=== PATIENT | male | born 1965 | race Caucasian/White ===

== ENCOUNTER → 2017-02-24 11:55 | Outpatient (CLI) | payer OTHER, SELFPAY ==
[2017-02-24 12:20] LABS: Microscopic, Urine URINE MICROSCOPIC (MICROSCOPIC)
--- NOTE | 2017-02-24 12:27 | XR_ITS ---
XR chest 2V HISTORY: Hypertension ITS.REASON: HTN ORDERING PHYSICIAN: Yonas Beck PATIENT AGE: 51 years COMPARISON: None available FINDINGS: The cardiomediastinal silhouette and pulmonary vascularity are within normal limits. The lungs are clear without infiltrates, suspicious nodules, or pleural effusions. No acute bony abnormalities. IMPRESSION: Negative chest, no acute finding
[2017-02-24 12:48] LABS: Activated Partial Thrombo Time 25.9 seconds (23.6-34.0); Prothrombin Time 10.8 seconds (9.4-11.8)
[2017-02-24 12:50] LABS: Basophils # 0.1 K/mm3 (0-0.2); Basophils % 0.8 % (0.1-2.0); Eosinophils # 0.2 K/mm3 (0.0-0.4); Eosinophils % 1.6 % (0.1-12.0); Hematocrit 49.2 % (42.0-52.0); Hemoglobin 16.1 g/dL (14.1-18.0); Lymphocytes # 2.9 K/mm3 (0.7-4.5); Lymphocytes % 27.8 K/mm3 (10-50); Mean Corpuscular HGB Conc 32.7 g/dL (31.8-35.4); Mean Corpuscular Hemoglobin 29.2 pg (27.0-31.2); Mean Corpuscular Volume 89.3 fl (80-94); Mean Platelet Volume 7.7 fl (7.4-10.4); Monocytes # 0.5 K/mm3 (0.1-1.0); Monocytes % 4.9 % (1.7-9.3); Neutrophils # 6.8 K/mm3 (1.8-7.8); Neutrophils % 64.8 % (37.0-80.0); Platelet Count 209 K/mm3 (142-424); White Blood Count 10.4 K/mm3 (4.8-10.8)
[2017-02-24 12:56] LABS: Appearance,Urine CLEAR (Clear); Bilirubin,Urine Negative (Negative); Blood, Urine Negative (Negative); Color,Urine YELLOW (Yellow); Glucose,Urine (UA) Negative (Negative); Ketones,Urine Negative (Negative); Leukocyte Esterase,Urine Negative (Negative); Nitrate,Urine Negative (Negative); PH,Urine 5.5 (5.0-8.5); Protein,Urine Negative (Negative); Specific Gravity, Urine >= 1.030 (1.005-1.030); Urobilinogen,Urine 0.2 EU/dl (0.2)
[2017-02-24 13:47] LABS: Anion Gap 14.4 mEq/L (5-15); Bacteria,Urine Trace /lpf; Blood Urea Nitrogen 27 mg/dL (7-18); Carbon Dioxide 26 mmol/L (21.0-32.0); Chloride 103 mmol/L (98-107); Estimated Glomerular Filt Rate 43 ml/min (>60); GFR (African American) 51 ML/MIN (>60); Glucose 91 mg/dL (74-106); Potassium 4.4 mmoL/L (3.5-5.1); Sodium 139 mmol/L (136-145); Squamous Epithelial Cell,Urine Occasional #/hpf (0-5)
[2017-02-24 14:00] LABS: Hemoglobin A1C 5.5 % (0.0-7.0)
== END ==
PROVIDERS: PCP Family Medicine; Visit Provider Family Medicine
DX: I10 Essential (primary) hypertension (principal); E78.00 Pure hypercholesterolemia, unspecified; R73.01 Impaired fasting glucose
CPT/HCPCS: 36415; 71046; 80048; 81001; 83036; 85025; 85610; 85730

== ENCOUNTER → 2019-12-06 07:40 | Outpatient (CLI) | payer OTHER, SELFPAY ==
[2019-12-06 09:36] LABS: Adenovirus,PCR Not Detected (NotDetected); Coronavirus 229E Not Detected (NotDetected); Coronavirus NL63 Not Detected (NotDetected); Coronavirus OC43 Not Detected (NotDetected); Coronovirus HKU1,PCR Not Detected (NotDetected); Human Metapneumovirus Not Detected (NotDetected); Influenza A, PCR Not Detected (NotDetected); Influenza AH1, 2009 Not Detected (NotDetected); Influenza AH1, PCR Not Detected (NotDetected); Influenza AH3,PCR Not Detected (NotDetected); Influenza B, PCR Not Detected (NotDetected); Parainfluenza 1, PCR Not Detected (NotDetected); Parainfluenza 2, PCR Not Detected (NotDetected); Rhinovirus/Enterovirus Not Detected (NotDetected)
[2019-12-06 09:37] LABS: Bordetella Pertussis Not Detected (NotDetected); Chlamydophila Pneumoniae, PCR Not Detected (NotDetected); Coronavirus 19, PCR Not Detected (NotDetected); Mycoplasma Pneumoniae, PCR Not Detected (NotDetected); Parainfluenza 3, PCR Not Detected (NotDetected); Parainfluenza 4, PCR Not Detected (NotDetected); Respiratory Syncytial Virus Not Detected (NotDetected)
== END ==
PROVIDERS: PCP Family Medicine; Visit Provider Internal Medicine Adolescent Medicine
DX: Z03.818 Encounter for observation for suspected exposure to other biological agents ruled out (principal)
CPT/HCPCS: 87581; 87633; 87798; U0003

== ENCOUNTER 2019-12-15 12:55 | Emergency (ER) | payer OTHER, SELFPAY ==
[2019-12-15 14:25] VITALS: BP 142/110; PULSE 71; RESP 16; TEMP 36.8; O2SAT 96; BMI 35.3
--- NOTE | 2019-12-15 14:35 | HMH.EDUTC ---
[facility] Disposition Clinical Impression: Sinusitis Qualifiers: Sinusitis location: unspecified location Chronicity: acute Recurrence: non-recurrent Qualified Code(s): J01.90 - Acute sinusitis, unspecified Disposition: Home, Self-Care Condition on Discharge: Good Instructions: Sinusitis, DI for Sinusitis Additional Instructions: Drink plenty of fluids. Take tylenol or ibuprofen for pain or fever. Take the medications as directed. Follow up with your regular doctor. GO TO THE ER FOR ANY WORSENING SYMPTOMS FOLLOW THE DIRECTIONS ON THE COVID-19 HAND OUT THAT WE GAVE YOU REGARDING SELF-ISOLATION UNTIL YOU KNOW YOUR COVID-19 RESULTS Prescriptions: Benzonatate [Tessalon Perle 100mg Cap] 100 mg PO TIDP PRN #30 cap PRN Reason: Cough Transmission Status: Received by [facility] #[id number] Azithromycin [Z-Yifan 250mg Tab*] 250 mg PO UD DOSE PK #6 tab Transmission Status: Received by [facility] #[id number] Referrals: Yonas Beck [Primary Care Provider] - Forms: Work/School Release Time of Disposition: 14:50 Medical Decision Making - Medical Records Medical records reviewed: No: I reviewed the patient's medical records. - Kunal Inquiry Pt receiving controlled substance: No Vital Signs: 12/15/19 14:25 12/15/19 14:54 Temperature 98.2 F 98.2 F Temperature Source Oral Pulse Rate 71 Pulse Rate [Right Brachial] 71 Respiratory Rate 16 16 Blood Pressure 142/110 H Blood Pressure [Right Arm] 142/110 H Blood Pressure Mean [Right Arm] 120 Blood Pressure Source [Right Arm] Automatic Cuff Blood Pressure Position [Right Arm] Sitting 02 Sat by Pulse Oximetry 96 Oxygen Delivery Method Room Air Orders (Tests/Meds): ED MEDICATIONS Discontinued Medications Generic Name Dose Route Start Last Admin Trade Name Freq PRN Reason Stop Dose Admin Ceftriaxone Sodium 1 gm 12/15/19 14:35 12/15/19 14:52 Ceftriaxone 1gm Vial IM 12/15/19 14:36 1 gm ONCE ONE Administration Protocol Lidocaine HCl 0 ml 12/15/19 14:35 12/15/19 14:52 Lidocaine 1% 5ml Pf Vial IM 12/15/19 14:36 2.1 ml ONCE ONE Administration Methylprednisolone Sodium Succinate 125 mg 12/15/19 14:35 12/15/19 14:52 Methylprednisolone Sod Succ 125mg Vial IM 12/15/19 14:36 125 mg ONCE ONE Administration ORDERS Category Date Time Status Covid-19 Nasal PCR ([facility]) Routine Lab 12/15/19 14:10 Received [facility] HPI - General Stated complaint: head and chest congestion covid test Time Seen by Provider: 12/15/19 14:30 Mode of Arrival: Ambulatory Source of Information: Patient Limitations: No Limitations Description of Symptoms (Recalled from Triage Doc. by RN): PATIENT C/O SORE THROAT AND HEAD COLD ; REQUESTING COVID TEST HEENT Symptoms (Recalled from RN notes): No Resp Symptoms (Recalled from RN notes): No Skin Symptoms (Recalled from RN notes): No MS Symptoms (Recalled from RN notes): No Functional Status (Recalled from RN notes): WNL - History of Present Illness Provider Complaint: She states that she has been having sinus congestion and feeling bad for the past 3 days. - Related Data Home Medications Medication Instructions Recorded Confirmed allopurinol 300 mg tablet PO 30 Days #30 tab 11/14/17 amlodipine 5 mg tablet PO 30 Days #60 tab 11/14/17 aspirin 81 mg tablet,delayed 81 mg PO DAILY 11/14/17 release atorvastatin 10 mg tablet PO 30 Days #30 tab 11/14/17 carvedilol 12.5 mg tablet PO 30 Days #60 tab 11/14/17 indapamide 2.5 mg tablet PO 30 Days #60 tab 11/14/17 isosorbide mononitrate 30 mg PO 30 Days #30 tab 11/14/17 tablet,extended release 24 hr spironolactone 25 mg tablet 25 mg PO DAILY 11/14/17 Previous Rx's Medication Instructions Recorded benzonatate 100 mg capsule 100 mg PO BID PRN #14 cap 11/14/17 Azithromycin [Z-Yifan 250mg Tab*] 250 mg PO UD DOSE PK #6 tab 12/15/19 Benzonatate [Tessalon Perle 100mg 100 mg PO TIDP PRN #30 cap 12/15/19 Cap]
[2019-12-15 14:54] VITALS: BP 142/110; PULSE 71; RESP 16; TEMP 36.8; O2SAT 96
== END 2019-12-15 15:03 | disposition home or self-care (01) ==
PROVIDERS: Emergency Provider Nurse Practitioner Family; PCP Family Medicine
DX: Z20.828 Contact with and (suspected) exposure to other viral communicable diseases (principal); J01.90 Acute sinusitis, unspecified
CPT/HCPCS: 96372; 99202; U0003